=== PATIENT | male | born 1960 | race Caucasian/White ===

== ENCOUNTER 2021-10-26 17:19 | Inpatient (IN) | payer OTHER ==
[~2021-10-26] VITALS: Ht 172.7 cm; Wt 87.5 kg
[2021-10-26 18:26] LABS: CLARITY URINE CLEAR (CLEAR); COLOR URINE YELLOW (YELLOW); KETONES URINE NEGATIVE (NEGATIVE); LEUKOCYTE ESTERASE URINE NEGATIVE (NEGATIVE); NITRITE URINE NEGATIVE (NEGATIVE); OCCULT BLOOD URINE NEGATIVE (NEGATIVE); PH URINE 8.5 (4.5-8.0); PROTEIN URINE TRACE (NEGATIVE); UROBILINOGEN URINE 0.2 E.U./dL (0.2-1.0)
[2021-10-26] MEDS ORDERED: DEXTROSE 50% WATER 50ML SYRINGE IV ONE (18:30)
[2021-10-26 18:41] LABS: *AMPHETAMINES SCREEN URINE NEGATIVE (NEGATIVE); *BARBITURATES SCREEN URINE NEGATIVE (NEGATIVE); *BENZODIAZEPINES SCREEN URINE NEGATIVE (NEGATIVE); *COCAINE SCREEN URINE NEGATIVE (NEGATIVE); CANNABINOID URINE SCREEN NEGATIVE (NEGATIVE); METHADONE URINE SCREEN NEGATIVE (NEGATIVE); OPIATES URINE SCREEN NEGATIVE (NEGATIVE); PHENCYCLIDINE URINE SCREEN NEGATIVE (NEGATIVE)
[2021-10-26 18:44] LABS: CHLORIDE 103 mEq/L (98-107)
[2021-10-26 18:51] LABS: HEMATOCRIT. 28.3 % (42.0-52.0); HEMOGLOBIN. 9.1 g/dL (14.0-18.0); MEAN CORPUSCULAR HEMOGLOBIN 29.2 pg (28.0-32.0); MEAN CORPUSCULAR VOLUME 90.6 fL (80.0-94.0); MEAN PLATELET VOLUME 7.5 fl (7.4-10.4); PLATELET 425 x1000/uL (130-400); RED BLOOD CELL COUNT 3.13 mill/uL (4.7-6.1); RED CELL DISTRIBUTION WIDTH 15.5 % (11.6-14.6)
[2021-10-26 18:53] LABS: ETHANOL BLOOD < 10 mg/dL
[2021-10-26 20:02] LABS: PLATELET ESTIMATE INCREASED
[2021-10-26] MEDS ORDERED: CLONIDINE 0.1MG TABLET PO PRN (21:15)
[2021-10-26] MEDS ORDERED: ONDANSETRON HCL 4MG/2ML INJ IV PRN (21:15)
[2021-10-26] MEDS ORDERED: HYDROCODONE/ACETAMINOPHEN 5/325MG TABLET PO PRN (21:15)
[2021-10-26] MEDS ORDERED: ACETAMINOPHEN 325MG TABLET PO PRN ×2 (21:15)
[2021-10-26] MEDS ORDERED: MAGNESIUM/ALUMINUM HYDROXIDE/SIMETHICONE 30ML UDC PO PRN (21:15)
[2021-10-26] MEDS ORDERED: GUAIFENESIN 200MG/10ML SUGAR FREE UDC PO PRN (21:15)
[2021-10-26] MEDS ORDERED: DEXTROSE 5% WATER 1,000 ML IV SCH (21:30)
[2021-10-26] MEDS ORDERED: ENOXAPARIN 40MG/0.4ML SYR SUBCUT SCH (21:37)
[2021-10-27] MEDS ORDERED: CARV12.545 PO (01:57)
[2021-10-27] MEDS ORDERED: LOSA100T32 PO (01:59)
[2021-10-27] MEDS ORDERED: ASPI-1497 PO (01:59)
[2021-10-27] MEDS ORDERED: EMPA25TA PO (01:59)
[2021-10-27] MEDS ORDERED: GLIP10TA10 PO (01:59)
[2021-10-27] MEDS ORDERED: APIX5TAB PO (01:59)
[2021-10-27] MEDS ORDERED: ATOR-2 PO (01:59)
[2021-10-27 04:51] LABS: BASOPHILS % 0.1 % (0.0-2.0); EOSINOPHILS % 2.5 % (0.0-5.0); HEMATOCRIT. 28.3 % (42.0-52.0); HEMOGLOBIN. 9.3 g/dL (14.0-18.0); LYMPHOCYTES % 11.3 % (20.0-50.0); MEAN CORPUSCULAR HEMOGLOBIN 28.3 pg (28.0-32.0); MEAN CORPUSCULAR VOLUME 85.8 fL (80.0-94.0); MEAN PLATELET VOLUME 6.9 fl (7.4-10.4); MONOCYTES % 6.1 % (2.0-8.0); PLATELET 414 x1000/uL (130-400); RED CELL DISTRIBUTION WIDTH 15.2 % (11.6-14.6)
[2021-10-27 05:07] LABS: CHLORIDE 103 mEq/L (98-107)
[2021-10-27 05:43] LABS: PHOSPHORUS 3.5 mg/dL (2.5-4.9); T4 FREE 1.34 ng/dL (0.76-1.46); TOTAL IRON BINDING CAPACITY 195 ug/dL (250-450)
[2021-10-27 05:47] LABS: FOLIC ACID (FOLATE) SERUM 6.8 ng/mL (>5.38)
[2021-10-27 11:33] VITALS: BP 150/82
[2021-10-27 12:00] VITALS: BP 138/83
[2021-10-27 16:00] VITALS: BP 136/76
[2021-10-27] MEDS ORDERED: NALOXONE HCL 0.4MG/ML VIAL IV PRN (17:00)
[2021-10-27] MEDS: BLOOD SUGAR DIAGNOSTIC STRIP TEST SCH ×2 (17:10→21:14)
[2021-10-27] MEDS ORDERED: DEXTROSE 50% WATER 50ML SYRINGE IV PRN (17:15)
[2021-10-27] MEDS: INSULIN LISPRO 100 UNITS/ML SUBCUT SCH ×2 (18:28→21:14)
[2021-10-27 20:00] VITALS: BP 150/82
[2021-10-27] MEDS: CARVEDILOL 6.25 MG TABLET PO SCH (21:14)
[2021-10-27] MEDS: AMOXICILLIN/POTASSIUM CLAVULANATE 875/125MG TAB PO SCH (21:14)
[2021-10-28 00:30] VITALS: BP 172/90
[2021-10-28 03:41] VITALS: BP 158/81
[2021-10-28] MEDS: BLOOD SUGAR DIAGNOSTIC STRIP TEST SCH ×3 (06:23→16:59)
[2021-10-28] MEDS: INSULIN LISPRO 100 UNITS/ML SUBCUT SCH ×3 (06:23→17:30)
[2021-10-28 07:59] VITALS: BP 148/83
[2021-10-28] MEDS: AMOXICILLIN/POTASSIUM CLAVULANATE 875/125MG TAB PO SCH (08:19)
[2021-10-28] MEDS: APIXABAN 5 MG TABLET PO SCH ×2 (08:20→16:59)
[2021-10-28] MEDS: CARVEDILOL 6.25 MG TABLET PO SCH (08:20)
[2021-10-28] MEDS ORDERED: ASPIRIN 81MG TABLET PO SCH (09:00)
[2021-10-28] MEDS ORDERED: LOSARTAN POTASSIUM 100 MG TABLET PO SCH (09:00)
[2021-10-28] MEDS ORDERED: ATORVASTATIN CALCIUM 40MG TABLET PO SCH (09:00)
[2021-10-28 11:56] VITALS: BP 109/65
[2021-10-28] MEDS ORDERED: SODIUM HYPOCHLORITE SOLUTION (0.5%)FULL STRENGTH TOP SCH (13:00)
[2021-10-28 16:00] VITALS: BP 132/71
[2021-10-28 16:12] LABS: BASOPHILS % 0.3 % (0.0-2.0); EOSINOPHILS % 2.2 % (0.0-5.0); HEMATOCRIT. 29.4 % (42.0-52.0); HEMOGLOBIN. 9.6 g/dL (14.0-18.0); LYMPHOCYTES % 13.2 % (20.0-50.0); MEAN CORPUSCULAR HEMOGLOBIN 28.3 pg (28.0-32.0); MEAN CORPUSCULAR VOLUME 86.4 fL (80.0-94.0); MEAN PLATELET VOLUME 7.1 fl (7.4-10.4); MONOCYTES % 7.8 % (2.0-8.0); NEUTROPHILS % 76.5 % (40.0-76.0); PLATELET 439 x1000/uL (130-400); RED CELL DISTRIBUTION WIDTH 15.3 % (11.6-14.6)
[2021-10-28 16:15] LABS: CHLORIDE 101 mEq/L (98-107)
[2021-10-28 17:07] VITALS: BP 132/71
[2021-10-29] MEDS ORDERED: SODIUM HYPOCHLORITE (0.25%) 480ML SOLUTION (HALF STRENGTH) TOP SCH ×2 (09:00)
[2021-10-29] MEDS ORDERED: SUCCINYLCHOLINE CHLORIDE 200MG/10ML IV ONE (10:24)
[2021-10-29] MEDS ORDERED: PROPOFOL 200MG/20ML VIAL IV ONE (10:24)
[2021-10-29] MEDS ORDERED: MIDAZOLAM HCL 2 MG/2 ML VIAL ONE (10:24)
[2021-10-29] MEDS ORDERED: FENTANYL CITRATE/PF 50MCG/ML 2ML VIAL ONE (10:25)
== END 2021-10-28 19:05 | disposition home or self-care (01) | DRG 623 ==
LOC: ER 17:19 → MICUSO 20:26 → SUPCPDRO 21:00 → 8WST 10-27 09:00
PROVIDERS: ADMIT Internal Medicine; ATTEND Internal Medicine
PROC: 0LBW0ZZ Excision of Left Foot Tendon, Open Approach (ICD-10-PCS; principal; 2021-10-28)
DX: E11.649 Type 2 diabetes mellitus with hypoglycemia without coma (principal); G93.40 Encephalopathy, unspecified; D53.9 Nutritional anemia, unspecified; D63.8 Anemia in other chronic diseases classified elsewhere; D72.829 Elevated white blood cell count, unspecified; R74.01 Elevation of levels of liver transaminase levels; S90.922A Unspecified superficial injury of left foot, initial encounter; X58.XXXA Exposure to other specified factors, initial encounter; I10 Essential (primary) hypertension; I25.10 Atherosclerotic heart disease of native coronary artery without angina pectoris; Z79.4 Long term (current) use of insulin; Z86.73 Personal history of transient ischemic attack (TIA), and cerebral infarction without residual deficits; Z95.1 Presence of aortocoronary bypass graft; Z79.01 Long term (current) use of anticoagulants; Z79.82 Long term (current) use of aspirin; Z79.899 Other long term (current) drug therapy; Y93.89 Activity, other specified; Y92.89 Other specified places as the place of occurrence of the external cause; Y99.8 Other external cause status; Z90.49 Acquired absence of other specified parts of digestive tract
CPT/HCPCS: 36415; 80048; 80053; 80305; 80320; 81003; 82607; 82728; 82746; 82962; 83036; 83540; 83550; 83605; 83735; 84100; 84145; 84439; 84443; 84484; 85025; 99291; J1650; J1815; G0480